=== PATIENT | male | born 1975 | race Caucasian/White ===

== ENCOUNTER 2023-10-14 11:06 | Emergency (ER) | payer OTHER, SELFPAY ==
--- NOTE | ~2023-10-14 | XR_ITS ---
Right ankle Technique: AP, oblique, and lateral views were obtained. Clinical History: Pain Findings: No acute fracture or dislocation is seen. Osseous alignment is anatomic. Ankle mortise and other visualized joint spaces are preserved. Soft tissues are otherwise unremarkable. Impression: Unremarkable right ankle. Reviewed, dictated and finalized at location . 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
[2023-10-14 12:19] VITALS: BP 140/86; PULSE 68; RESP 16; TEMP 36.3; O2SAT 97
--- NOTE | 2023-10-14 13:08 | ED.LOWEXIN ---
HPI - Extremity Injury (Lower) General Chief Complaint: Extremity Injury, Lower Stated Complaint: ankle injury Time Seen by Provider: 10/14/23 12:35 History of Present Illness HPI Narrative: Patient is a 48-year-old male presents ER with pain over his lateral malleolus of the right ankle. He was walking down steps when he slipped and had inversion injury. He is able to bear weight. Brief tingling that has resolved. No additional injury. Concerned he may have a fracture as this is worse than typical sprains in the past. Related Data Allergies Allergy/AdvReac Type Severity Reaction Status Date / Time No Known Allergies Allergy Verified 10/14/23 12:32 Review of Systems Constitutional: Constitutional: Reports no additional constitutional complaints Musculoskeletal: Musculoskeletal: Reports arthralgias and Reports joint swelling Neurologic: Denies focal weakness and Denies numbness PMFSH Past Medical History Medical History (Updated 10/14/23 @ 13:25 by Thomas Kyle MD) Healthy adult male Surgical History Surgical History (Updated 10/14/23 @ 13:10 by Thomas Kyle MD) Hx of hernia repair Social History Social History (Updated 08/09/22 @ 12:14 by Kindra Vasquez, TYSON) Smoking status: Current every day smoker Tobacco type: cigarettes Additional smoking assessment comments: about 2 packs per week Alcohol intake: current Drinks per week: 10 Alcohol use details: Couple of times per week. about 2-3 drinks at a time. Substance use: never Substance use type: does not use Living arrangements: with family Occupation/Education: occupation Gender identity (if verbalized by the patient): Male Spiritual care concerns: No Exam Narrative: GENERAL: Well-appearing, well-nourished, and in no acute distress. HEAD: Normocephalic, atraumatic. EXTREMITIES: Normal range of motion. No edema. tender palpation over the anterior aspect of the lateral malleolus of the right ankle with noted swelling and no bruising. Dorsalis pedis pulses intact SKIN: Warm, dry, no rash. NEURO: No focal deficits. Alert and oriented x3. PSYCH: Normal mood and affect. Course Course Emergency Course: discussed diagnosis and treatment plan. Discharged home. Vital Signs Vital signs: Vital Signs Temperature 97.3 F L 10/14/23 12:19 Pulse Rate 68 10/14/23 12:19 Respiratory Rate 16 01/05/24 12:19 Blood Pressure 140/86 10/14/23 12:19 Pulse Oximetry 97 10/14/23 12:19 Oxygen Delivery Room Air 10/14/23 12:19 Temperature 97.3 F L 10/14/23 12:19 Pulse Rate 68 10/14/23 12:19 Respiratory Rate 16 10/14/23 12:19 Blood Pressure 140/86 10/14/23 12:19 Pulse Oximetry 97 10/14/23 12:19 Oxygen Delivery Room Air 10/14/23 12:19 MDM - Extremity Injury (Lower) Imaging Data Radiologist's impression: ITS Impressions Ankle X-Ray 10/14/23 13:05 Impression: Unremarkable right ankle. Discharge Plan Discharge Clinical Impression: Ankle sprain Patient Disposition: Home, Self-Care Condition: Stable Instructions: Ankle Sprain (ED), P.R.I.C.E. Treatment (ED) Additional Instructions: Return to the ER if you suffer additional injury, you have new numbness or weakness in your foot, or you have have additional concerns. Prescriptions: New naproxen 375 mg tablet 375 mg PO BID Qty: 14 0RF Follow-up/Referrals: Asad Elise MD [Primary Care Provider] - 1 Week
== END 2023-10-14 13:38 | disposition home or self-care (01) ==
PROVIDERS: Emergency Provider Emergency Medicine; PCP Family Medicine Adolescent Medicine
DX: S93.401A Sprain of unspecified ligament of right ankle, initial encounter (principal); F17.210 Nicotine dependence, cigarettes, uncomplicated; X50.9XXA Other and unspecified overexertion or strenuous movements or postures, initial encounter
CPT/HCPCS: 73610; 99283

== ENCOUNTER 2023-10-31 01:15 | Day surgery (SDC) | payer OTHER, SELFPAY ==
[2023-10-04 14:15] VITALS: BMI 38.9
--- NOTE | 2023-10-28 10:58 | PC.NURSE ---
Patient called regarding upcoming procedure. Reviewed preop instructions, appointment times, and procedure prep.
[2023-10-31 10:20] VITALS: BP 146/96; PULSE 95; RESP 18; TEMP 36.9; O2SAT 98; BMI 39.1
[2023-10-31] MEDS: LACTATED RINGERS 1,000 ML 150 ML IV CONT (10:36)
--- NOTE | 2023-10-31 11:07 | WPDANESEPPF ---
Anes - Initial Pre Proc Eval Procedure: Operation Date: 10/31/23 11:30 Proposed Procedures p Colonoscopy - Jaiden Telles MD Date/Time: 10/31/23 11:07 Surgeon: Jaiden Telles MD Pre Op Diagnosis: Diarrhea Patient Data Age: 48 Gender: M Height: 1.78 m Weight: 123.6 kg Last Vital Signs Temp 98.5 F 10/31/23 10:20 Pulse 95 10/31/23 10:20 Resp 18 10/31/23 10:20 BP 146/96 H 10/31/23 10:20 Pulse Ox 98 10/31/23 10:20 O2 Del Method Room Air 10/31/23 10:20 Allergies Allergy/AdvReac Type Severity Reaction Status Date / Time No Known Allergies Allergy Verified 10/31/23 10:26 Home Medications Medication Instructions Recorded Confirmed Type naproxen 375 mg tablet 375 mg PO BID #14 tabs 10/14/23 10/31/23 Rx Patient hx anesthesia problems: none Family hx anesthesia problems: none Results Review: All pre-operative results and documents have been reviewed as part of the pre-operative evaluation. [facility] Past Medical History Medical History (Updated 10/15/23 @ 00:00 by Carina Moses) Healthy adult male Surgical History Surgical History (Updated 10/14/23 @ 13:10 by Thomas Kyle MD) Hx of hernia repair Social History Social History (Updated 08/09/22 @ 12:14 by Kindra Vasquez, PA-C) Smoking status: Current every day smoker Tobacco type: cigarettes Additional smoking assessment comments: about 2 packs per week Alcohol intake: current Drinks per week: 10 Alcohol use details: Couple of times per week. about 2-3 drinks at a time. Substance use: never Substance use type: does not use Living arrangements: with family Occupation/Education: occupation Gender identity (if verbalized by the patient): Male Spiritual care concerns: No Anes - Eval Final PreProcedure Day of Procedure 10/31/23 11:08 Patient weight: morbidly obese Heart: regular rate and rhythm Lungs: clear to auscultation Airway: Mallampati scale class II Neurological: alert and oriented Last oral intake: >/= 8 hours ASA classification: III Emergent: no Anesthetic plan: proceed Anesthesia type and monitoring: general GIVS and standard monitoring Results Review: All pre-operative results and documents have been reviewed as part of the pre-operative evaluation. Informed Consent: The patient's anesthetic plan and its attendant risks and benefits were discussed with the patient/family/POA. Questions were solicited and answers provided to the satisfaction of the patient/family/POA.
--- NOTE | 2023-10-31 11:09 | PM.HPGS ---
History of Present Illness History of Present Illness Consent: Risks, benefits, and alternatives have been discussed and questions answered. Patient agrees to proceed with procedure. Chief complaint: Diarrhea Narrative: Conrad Birch is a 48 year old male here for colonoscopy since never had one, also for years intermittent loose stool but better since using fiber Review of Systems Constitutional: Constitutional: Denies headache(s) and Denies weakness Eyes: Eyes: Denies blurry vision ENT: Reports Normal hearing present, Denies headache(s) and Denies neck pain Cardiovascular: Cardiovascular: Denies chest pain and Denies dyspnea Respiratory: Respiratory: Denies dyspnea Gastrointestinal: Gastrointestinal: Reports no additional gastrointestinal complaints Genitourinary: Genitourinary: Denies dysuria Musculoskeletal: Musculoskeletal: Denies neck pain Integumentary/Breasts: Skin/Breast: Denies dry skin Neurologic: Reports Normal hearing present, Denies headache(s) and Denies weakness Psychiatric: Psychiatric: Denies anxiety Endocrine: Endocrine: Denies change in body appearance Hematologic/Lymphatic: Hematologic/Lymphatic: Denies easy bleeding Allergic/Immunologic: Allergic/Immunologic: Denies urticaria PMF Past Medical History Medical History (Updated 10/31/23 @ 11:10 by Jaiden Telles MD) Colon cancer screening Healthy adult male Surgical History Surgical History (Updated 10/14/23 @ 13:10 by Thomas Kyle MD) Hx of hernia repair Social History Social History (Updated 08/09/22 @ 12:14 by Kindra Vasquez, PA-C) Smoking status: Current every day smoker Tobacco type: cigarettes Additional smoking assessment comments: about 2 packs per week Alcohol intake: current Drinks per week: 10 Alcohol use details: Couple of times per week. about 2-3 drinks at a time. Substance use: never Substance use type: does not use Living arrangements: with family Occupation/Education: occupation Gender identity (if verbalized by the patient): Male Spiritual care concerns: No Meds Home Medications and Allergies Home Medications Medication Instructions Recorded Confirmed Type naproxen 375 mg tablet 375 mg PO BID #14 tabs 10/14/23 10/31/23 Rx Allergies Allergy/AdvReac Type Severity Reaction Status Date / Time No Known Allergies Allergy Verified 10/31/23 10:26 Vital Signs Vital Signs - 24 hr 10/31/23 10:20 Temperature 98.5 F Pulse Rate 95 Respiratory Rate 18 Blood Pressure 146/96 H Pulse Oximetry 98 Oxygen Delivery Room Air Exam Const: General: comfortable and no acute distress HENMT: Face/Nose/Sinus: Normal nares present Eyes: General: appearance normal, both eyes and all related structures Neck: Neck: no JVD Resp: Auscultation: clear to auscultation bilaterally Cardio: Rate: regular rate Rhythm: regular rhythm GI: Inspection: non-distended GI Palp: Yes Soft to palpation Skin: General skin exam: normal color Neuro: General: gait normal Speech: normal speech Extrem: General: normal to inspection Psych: Mental Status: mental status grossly normal Assessment and Plan Assessment and plan (1) Diarrhea: Code(s): R19.7 - Diarrhea, unspecified Status: Acute Assessment and Plan: colonoscopy with random bx (2) Colon cancer screening: Code(s): Z12.11 - Encounter for screening for malignant neoplasm of colon Status: Acute
[2023-10-31 11:30] VITALS: BP 132/83; PULSE 83; RESP 21; O2SAT 98
[2023-10-31 11:40] VITALS: BP 131/92; PULSE 81; RESP 21; O2SAT 96
[2023-10-31 11:50] VITALS: BP 131/92; PULSE 81; RESP 17; O2SAT 96
== END 2023-10-31 11:56 | disposition home or self-care (01) ==
PROVIDERS: PCP Family Medicine Adolescent Medicine; Visit Provider Internal Medicine Gastroenterology
PROC: 0DJD8ZZ Inspection of Lower Intestinal Tract, Via Natural or Artificial Opening Endoscopic (ICD-10-PCS; CPT 45378; principal; 2023-10-31 11:30)
DX: Z12.11 Encounter for screening for malignant neoplasm of colon (principal); K64.8 Other hemorrhoids; R19.7 Diarrhea, unspecified; F17.210 Nicotine dependence, cigarettes, uncomplicated; E66.01 Morbid (severe) obesity due to excess calories; Z68.39 Body mass index [BMI] 39.0-39.9, adult; Z98.890 Other specified postprocedural states; Z79.1 Long term (current) use of non-steroidal anti-inflammatories (NSAID)
CPT/HCPCS: 45380; 88305; J2704; J7120

== ENCOUNTER 2024-12-08 09:30 | Emergency (ER) | payer BC, SELFPAY ==
[2024-12-08 09:56] VITALS: BP 141/98; PULSE 71; RESP 18; TEMP 36.6; O2SAT 98
[2024-12-08 10:09] LABS: EDSTREPNEGPOS1 Positive (Negative)
--- NOTE | 2024-12-08 10:14 | ED.URI ---
HPI - URI/Sore Throat General Chief Complaint: Upper Respiratory Infection Stated Complaint: bodyaches/sore throat History of Present Illness HPI Narrative: [age] year old male presented for complaint of sore throat. Onset 3 days. States the pain is worsened since onset and has had occasional body aches and cough. Denies shortness of breath, wheezing nausea vomiting, fevers or lethargy. Taking ibuprofen. Related Data Allergies Allergy/AdvReac Type Severity Reaction Status Date / Time No Known Allergies Allergy Verified 12/08/24 09:52 Review of Systems Review of Systems: ROS per HPI [facility] Past Medical History Medical History Colon cancer screening Healthy adult male Surgical History Surgical History Hx of hernia repair Social History Social History Smoking status: Current every day smoker Tobacco type: cigarettes Additional smoking assessment comments: about 2 packs per week Alcohol intake: current Drinks per week: 10 Alcohol use details: Couple of times per week. about 2-3 drinks at a time. Substance use: never Substance use type: does not use Living arrangements: with family Occupation/Education: occupation Gender identity (if verbalized by the patient): Male Spiritual care concerns: No Exam Narrative: GENERAL: mildly Ill-appearing, no acute distress. EYES: conjunctivae clear ENT: Mucous membranes moist. TM pearly lafleur with normal light reflex bilaterally; no tragal tenderness. Oropharynx severely erythematous without lesions. Tonsils enlarged 2+ without exudate. No drooling, no hoarseness, no trismus, uvula midline. No tripod positioning, hot potato voice, or soft palate swelling. NECK: Supple. No lymphadenopathy CHEST: Clear to auscultation, breath sounds equal. No respiratory distress, speaks in full sentences. HEART: Regular rate and rhythm. No murmur heard. SKIN: Warm, dry, no rash. NEURO: Alert and oriented x3. Course Course Emergency Course: Patient is aware of diagnosis, understands and agrees to treatment plan. Anticipatory guidance given. Patient agrees to follow-up as directed and is aware of reasons to seek care at the emergency department. Portions of this record may have been created with voice recognition software Level of Care: Express Care Visit Vital Signs Vital signs: Vital Signs Temperature 97.8 F 12/08/24 09:56 Pulse Rate 71 12/08/24 09:56 Respiratory Rate 18 12/08/24 09:56 Blood Pressure 141/98 H 12/08/24 09:56 Pulse Oximetry 98 12/08/24 09:56 Oxygen Delivery Room Air 12/08/24 09:56 Temperature 97.8 F 12/08/24 09:56 Pulse Rate 71 12/08/24 09:56 Respiratory Rate 18 12/08/24 09:56 Blood Pressure 141/98 H 12/08/24 09:56 Pulse Oximetry 98 12/08/24 09:56 Oxygen Delivery Room Air 12/08/24 09:56 MDM - URI/Sore Throat MDM Narrative Medical decision making narrative: POS strep result reviewed with pt. Advise supportive treatments. Patient is appropriate for outpatient treatment and follow-up. Differential Diagnosis Differential diagnosis: Likely upper respiratory infection, viral infection and pharyngitis Lab Data Labs: Lab Results 12/08/24 Range/Units 10:07 POC Grp A Strep Screen Positive (Negative) Discharge Plan Discharge Clinical Impression: Strep pharyngitis Patient Disposition: Home, Self-Care Condition: Stable Instructions: Antibiotic Form, Strep Throat (ED) Additional Instructions: - Take the antibiotic as directed. Fever and sore throat typically resolve within one to three days. Most patients can return to work, after 12 to 24 hours of antibiotic therapy, provided you are fever free and otherwise well. -Eat and drink things that are easy to swallow, like soft foods, cool liquids, tea with honey, or popsicles . -Salt water gargles and/or may use topical anesthetic ( Chloraseptic spray) or lozenges to relieve dryness or throat pain -Alternate Tylenol and ibuprofen as needed for pain and fever as directed. -Frequent hand washing or hand director pediatric is one of the best ways to prevent spread of infection. Throw away the toothbrush after 24hours of antibiotic. -Follow up with primary care provider in 2-3 days if condition is not improving -Go to the ER if you have trouble breathing, cannot drink enough fluids, have muffled voice or drooling, difficulty opening your mouth, or severe swelling. Patient Language: Maltese Prescriptions: New amoxicillin 500 mg tablet 1,000 mg PO DAILY 10 Days Qty: 20 0RF Follow-up/Referrals: Asad Elise MD [Primary Care Provider] - Time of Disposition: 10:18
== END 2024-12-08 10:20 | disposition home or self-care (01) ==
PROVIDERS: Emergency Provider Nurse Practitioner Family; PCP Family Medicine Adolescent Medicine
DX: J02.0 Streptococcal pharyngitis (principal); F17.210 Nicotine dependence, cigarettes, uncomplicated
CPT/HCPCS: 87880; 99213; G0463